=== PATIENT | female | born 1985 | race Caucasian/White ===

== ENCOUNTER → 2024-04-11 07:06 | Outpatient (REF) | payer OTHER, SELFPAY | LOC: HWRAD 07:06 | PROVIDERS: ATTENDING PHYSICIAN Student in an Organized Health Care Education/Training Program | DX: R22.0 Localized swelling, mass and lump, head (principal) | CPT/HCPCS: 76536 ==

== ENCOUNTER 2025-09-12 10:50 | Emergency (ER) | payer OTHER, SELFPAY ==
[2025-09-12 10:51] VITALS: BP 151/90
[2025-09-12 12:26] LABS: Hematocrit 39.6 % (37.0-47.0); Hemoglobin 13.3 g/dL (12.0-16.0); Mean Corp Hgb Conc. 33.6 g/dL (33.0-37.0); Mean Corpuscular Volume 91.7 fL (81.0-99.0); Nucleated Red Blood Cells % 0 %; Platelet Count 277 10^3/uL (130-400); Red Cell Dist. Width 11.7 % (11.5-14.5)
[2025-09-12 12:43] LABS: HCG, Serum Qualitative Screen Negative
[2025-09-12 12:52] LABS: ALT (SGPT) 23 U/L (0-35); AST (SGOT) 27 U/L (14-36); Albumin 4.5 g/dl (3.5-5.0); Alkaline Phosphatase 50 U/L (38-126); Blood Urea Nitrogen 9 mg/dl (7-17); Calcium 9.7 mg/dl (8.4-10.2); Carbon Dioxide 25 mmol/L (22-30); Chloride 106 mmol/L (98-107); Glucose 90 mg/dl (70-99); Potassium 3.9 mmol/L (3.5-5.1); Sodium 136 mmol/L (135-145); Total Protein 7.5 g/dl (6.3-8.2); eGFR > 60.00
[2025-09-12 13:49] VITALS: BP 121/77
[2025-09-12] MEDS: TORADOL 15 MG IV (13:59)
--- NOTE | 2025-09-12 14:05 | ED.GENMED ---
History of Present Illness
General
Chief Complaint: Abdominal Pain
Time Seen by Provider: 09/12/25 12:15
History of Present Illness
History of Present Illness:
40-year-old female with no significant past medical history presents emergency department for evaluation of left lower quadrant/left flank pain began last night. Seems to wax and wane with frequent periods of severe pain. She also reports vaginal
spotting associated with this as well. Prior abdominal surgical history includes ovarian cystectomy and x 2. Denies associated fever, chills, sweats, nausea, vomiting, or diarrhea. Reports she felt dizzy and lightheaded as well
Past History
Past History
ED Past Medical History: Asthma
ED Past Surgical History: None, , Gynecological (Ovarian cyst) and Orthopedic (R foot Sx, )
Social History
Tobacco: Non-smoker
Alcohol: None
Drug: None
Personal:
Living: with family
Review of Systems
Review of Systems
Allergies reviewed?: Yes
All Other Systems: ROS reviewed and negative except as documented in HPI and ROS
Phy Exam
Physical Exam
Physical Exam:
GEN: Well appearing, NAD, WDWN
HEENT: Oral mucosa moist, no scleral icterus
Cardiac: Regular rate
Lung: No respiratory distress, no tachypnea
Abdomen: Soft, left lower quadrant tenderness, no rigidity or peritoneal sign
MSK: No gross deformity or injuries
Skin: Good color, no pallor or jaundice, no rashes
Neuro: AO x3, moves all extremities freely
Psych: Calm, cooperative
Course
Orders/Labs/Results
Orders:
Orders
09/12/25 12:18
Test Result ONCE
09/12/25 12:19
Complete Blood Count/With Diff Urgent
Comprehensive Metabolic Panel Urgent
HCG, Serum Qualitative Screen Urgent
09/12/25 12:30
US Pelvis W Transvag Combined Urgent
Comment:
Reason For Exam: L pelvic pain
09/12/25 13:53
Ketorolac [Toradol] 15 mg IV NOW STA
09/12/25 12:19
09/12/25 12:19
Vital Signs
Initial and Last Documented VS:
Initial Vital Signs
Temp Pulse Resp BP Pulse Ox
98.4 F 73 16 151/90 100
09/12/25 10:51 09/12/25 10:51 09/12/25 10:51 09/12/25 10:51 09/12/25 10:51
Last Documented Vital Signs
Temp Pulse Resp BP Pulse Ox
98.4 F 64 16 121/77 98
09/12/25 10:51 09/12/25 13:49 09/12/25 14:00 09/12/25 13:49 09/12/25 14:07
MDM/Problems Addressed
MDM/Problems Addressed:
Pain is most likely secondary to the 3 cm left ovarian cyst. No evidence for hemorrhage. She is hemodynamically and clinically stable otherwise. Will treat supportively, she has outpatient [employer] follow-up planned for next week
*Pulse Oximetry
SaO2: 98
Oxygen Mode of Delivery: Room air
Patient hypoxic: no
*Critical Care Note
Total Time (30-74mins, 75-104mins- exclusive of procedures): Not Applicable
ED Attending Note
-
Portions of this chart may have been created with voice recognition software.� Occasional wrong word or��sound alike� substitutions may have occurred due to the inherent limitations of voice recognition software.
Discharge Plan
Departure
Patient Disposition: Home (Routine Discharge)
Date of Disposition: 09/12/25
Time of Disposition: 14:45
Patient with high blood pressure during this ER visit?: No
Discharge Problem:
Cyst of left ovary
Instructions: Ovarian Cyst (DC)
Prescriptions:
New
ketorolac 10 mg tablet
10 mg PO Q8H PRN (Reason: Pain) Qty: 15 0RF
Rx Instructions:
maximum total duration of 5 days from all oral, intranasal, or parenteral formulations
No Action
calcium carbonate 500 MG tablet
500 mg PO DAILY
albuterol sulfate [Albuterol Sulfate HFA] 18 GM HFA aerosol inhaler
1 puff inhalation PRN PRN (Reason: sob)
PNV no.95-ferrous fumarate-FA [ Multivitamins] 1 EACH tablet
1 ea PO DAILY
cetirizine [Zyrtec] 10 MG tablet,disintegrating
10 mg PO DAILY
acetaminophen 325 MG tablet
650 mg PO Q4HPRN PRN (Reason: mild pain) 0RF
ibuprofen 600 MG tablet
600 mg PO Q6HPRN PRN (Reason: cramps) 0RF
methylprednisolone [Medrol (Sheldon)] 4 mg tablets,dose pack
See Rx Instructions .ROUTE .COMPLEX Qty: 21 0RF
Rx Instructions:
orally per package directions
famotidine [Pepcid] 20 mg tablet
20 mg PO BID Qty: 10 0RF
prednisone 20 mg tablet
20 mg PO DAILY Qty: 4 0RF
Referrals:
Mary Ann Roa CNM [Family Provider, Obstetric[facility]]
Interventions
Interventions:
*Risk Screen - Suicide Last Done: 09/12/25 10:51
*General Assessment Last Done: 09/12/25 10:51
*Neglect/Abuse Screening Last Done: 09/12/25 10:51
*ED- Fall Risk Assessment Last Done: 09/12/25 12:06
*ED COVID-19 Vaccine History Last Done: 09/12/25 12:06
*ED Influenza Vaccine History Last Done: 09/12/25 12:06
WU-Xuvcjn-Phnzghmwwb Assessment Last Done: 09/12/25 12:07
Discharge Date and Time
Print Language: UKRAINIAN
== END 2025-09-12 14:53 | disposition home or self-care (01) ==
LOC: EMR 10:50
PROVIDERS: EMERGENCY PHYSICIAN Student in an Organized Health Care Education/Training Program; FAMILY PHYSICIAN Advanced Practice Midwife
DX: N83.292 Other ovarian cyst, left side (principal); J45.909 Unspecified asthma, uncomplicated
CPT/HCPCS: 99284; 96374; 76830; 76856; 80053; 84703; 85025